=== PATIENT | female | born 1995 | race Caucasian/White ===

== ENCOUNTER 2017-01-18 20:34 | Emergency (ER) | payer MEDICAID ==
[~2017-01-18] VITALS: Ht 167.6 cm; Wt 58.2 kg
[2017-01-19 00:51] LABS: BASOPHILS % (AUTO) 0.2 % (0.0-2.0); EOSINOPHILS % (AUTO) 1.3 % (1.0-6.0); HEMATOCRIT 36.1 % (36-46); HEMOGLOBIN 11.9 g/dL (12.0-16.0); LYMPHOCYTES # (AUTO) 2.6 K/uL (1.0-4.8); LYMPHOCYTES % (AUTO) 25.4 % (22.0-44.0); MEAN CORPUSCULAR HEMOGLOBIN 29.4 pg (26.0-34.0); MEAN CORPUSCULAR HGB CONC 33.1 G/dL (31.0-37.0); MEAN CORPUSCULAR VOLUME 89 fL (80-100); MONOCYTES # (AUTO) 0.8 K/uL (0.1-1.0); MONOCYTES % (AUTO) 7.5 % (2.0-9.0); NEUTROPHILS # (AUTO) 6.7 K/uL (1.8-7.7); NEUTROPHILS % (AUTO) 65.6 % (40.0-70.0); PLATELET COUNT (AUTO) 243 K/uL (150-450); RED BLOOD CELL COUNT(AUTO) 4.06 MIL/uL (4.00-5.20); RED CELL DISTRIBUTION WIDTH 11.9 % (11.5-14.5); WHITE BLOOD COUNT (AUTO) 10.2 K/uL (4.5-11.0)
[2017-01-19] MEDS ORDERED: IBUPROFEN 600 MG TABLET PO ONE (02:00)
[2017-01-19] MEDS ORDERED: ACETAMINOPHEN/CODEINE 300-30 MG TABLET PO ONE (02:00)
[2017-01-19 03:16] VITALS: BP 128/74
== END 2017-01-19 03:19 | disposition home or self-care (01) ==
LOC: EMS 20:36
DX: O03.9 Complete or unspecified spontaneous abortion without complication (principal); Z3A.01 Less than 8 weeks gestation of pregnancy
CPT/HCPCS: 76801; 76817; 86901; 99285

== ENCOUNTER 2022-03-20 12:57 | Emergency (ER) | payer MEDICAID, OTHER ==
[~2022-03-20] VITALS: Ht 165.1 cm; Wt 63.6 kg
[2022-03-20] MEDS ORDERED: LIDOCAINE 5% TRANSDERMAL PATCH TD ONE (14:30)
[2022-03-20 15:37] VITALS: BP 113/69
== END 2022-03-20 16:52 | disposition home or self-care (01) ==
LOC: EMS 12:57
DX: M25.532 Pain in left wrist (principal); M54.2 Cervicalgia; M25.522 Pain in left elbow; M25.561 Pain in right knee; V49.9XXA Car occupant (driver) (passenger) injured in unspecified traffic accident, initial encounter; Y93.89 Activity, other specified; Y92.89 Other specified places as the place of occurrence of the external cause; Y99.8 Other external cause status
CPT/HCPCS: 72040; 82962; 99284

== ENCOUNTER 2024-04-29 18:00 | Emergency (ER) | payer MEDICAID, OTHER ==
[~2024-04-29] VITALS: Ht 165.1 cm; Wt 61.4 kg
[2024-04-29 18:01] VITALS: BP 132/89; PULSE 92; RESP 18; TEMP 98.1
[2024-04-29] MEDS: IBUPROFEN 600 MG TABLET PO ONE (18:53)
[2024-04-29] MEDS: ACETAMINOPHEN 325 MG TABLET PO ONE (18:53)
[2024-04-29] MEDS ORDERED: ACET-2247 PO (19:29)
[2024-04-29] MEDS ORDERED: IBUP-1492 PO (19:29)
== END 2024-04-29 19:51 | disposition home or self-care (01) ==
LOC: EMS 18:01
DX: S20.211A Contusion of right front wall of thorax, initial encounter (principal); V49.88XA Car occupant (driver) (passenger) injured in other specified transport accidents, initial encounter; Y93.89 Activity, other specified; Y92.89 Other specified places as the place of occurrence of the external cause; Y99.8 Other external cause status
CPT/HCPCS: 71101; 99284; 73030-TC; 73090-TC; Z7502; Z7610